=== PATIENT | female | born 1940 | race Caucasian/White ===

== ENCOUNTER 2018-01-15 11:00 | Outpatient (CLI) | payer MEDICARE ==
--- NOTE | 2018-01-15 14:28 | PET ---
PET CT OF THE BRAIN: Date: 01/15/18 HISTORY: 77-year-old female with left frontotemporal dementia. TECHNIQUE: PET CT was performed following the intravenous administration of 7.8 mCi [id number] in the right antecub ital fossa. FINDINGS: Fairly symmetric tracer localization is seen in the cerebral hemispheres on either side. No significa nt hypometabolic regions are seen. Uptake in the posterior cingulate gyrus is normal. IMPRESSION: Unremarkable exam. POS: JOSE JUAN
== END 2018-01-15 11:01 | disposition home or self-care (01) ==
LOC: PET 11:00
PROVIDERS: ATTEND Psychiatry & Neurology Neurology
DX: G31.09 Other frontotemporal neurocognitive disorder (principal)
CPT/HCPCS: 78608; A9552

== ENCOUNTER 2018-05-28 11:24 | Outpatient (CLI) | payer MEDICARE ==
--- NOTE | 2018-05-28 12:21 | RAD ---
CHEST 2 VIEWS: Date: 05/28/18 HISTORY: Cough. COMPARISON: 11/19/16. FINDINGS: Lungs are clear. No pneumothorax or effusion. Single lead defibrillator is in place. Scarring lung ap ices. No acute osseous abnormality. IMPRESSION: No acute intrathoracic abnormality. POS: OFF
--- NOTE | 2018-05-28 12:23 | RAD ---
SINUSES 3 VIEWS: Date: 05/28/18 HISTORY: Cough and low grade fever and sinus pain. COMPARISON: None. FINDINGS: There appears to be an air fluid level within both maxillary sinuses. Frontal sinuses appear well aer ated. Mastoids appear clear. IMPRESSION: Likely bimaxillary sinusitis. POS: OFF
== END 2018-05-28 11:25 | disposition home or self-care (01) ==
LOC: BICRAD 11:24
PROVIDERS: ATTEND Internal Medicine
DX: R05 Cough (principal); J18.9 Pneumonia, unspecified organism; J32.9 Chronic sinusitis, unspecified
CPT/HCPCS: 70220; 71046

== ENCOUNTER 2018-06-17 14:09 | Outpatient (CLI) | payer MEDICARE | END 2018-06-17 14:10 | disposition home or self-care (01) | LOC: CTENTCT 14:09 | PROVIDERS: ATTEND Specialist | DX: J32.9 Chronic sinusitis, unspecified (principal) | CPT/HCPCS: 70486 ==

== ENCOUNTER 2020-11-23 13:03 | Outpatient (CLI) | payer MEDICARE | END 2020-11-23 13:04 | disposition home or self-care (01) | LOC: BICRAD 13:03 | PROVIDERS: ATTEND Internal Medicine | DX: J32.9 Chronic sinusitis, unspecified (principal); R05 Cough | CPT/HCPCS: 70220; 71046 ==

== ENCOUNTER 2022-03-15 13:59 | Outpatient (CLI) | payer MEDICARE | END 2022-03-15 14:00 | disposition home or self-care (01) | LOC: CT 13:59 | PROVIDERS: ATTEND Internal Medicine | DX: G45.9 Transient cerebral ischemic attack, unspecified (principal); I63.9 Cerebral infarction, unspecified; I67.89 Other cerebrovascular disease | CPT/HCPCS: 70450; 93880 ==

== ENCOUNTER 2023-03-10 07:58 | Outpatient (CLI) | payer MEDICARE ==
[2023-03-10] MEDS ORDERED: Acetaminophen 500 MG TAB ONE (10:26)
[2023-03-10 10:35] LABS: Blood Culture - Extra Bottle RECEIVED; Blue RECEIVED; Gold RECEIVED; Green RECEIVED; Lavender RECEIVED; SST 8.5mL RECEIVED
[2023-03-10 11:34] LABS: CSF Source CSF; Clarity Clear (Clear); Tube # 4
== END 2023-03-10 11:30 | disposition home or self-care (01) ==
LOC: RAD 07:58
PROVIDERS: ATTEND Psychiatry & Neurology Neurology
DX: G93.89 Other specified disorders of brain (principal); G97.0 Cerebrospinal fluid leak from spinal puncture
CPT/HCPCS: 62270; 70450; 84157; 86592; 86612; 86635; 86698; 87529; 87899; 89051

== ENCOUNTER 2023-06-16 14:30 | Inpatient (IN) | payer MEDICARE ==
[2023-06-19] MEDS ORDERED: Bupivacaine 0.25% HCL 30 ML VIAL ONE ×2 (06:27→07:40)
[2023-06-19] MEDS ORDERED: EPINEPHrine 1 MG/ML VIAL ONE (06:27)
[2023-06-19] MEDS ORDERED: CEFAZOLIN 2 GM VIAL ONE (07:03)
[2023-06-19] MEDS ORDERED: Sodium Chloride 0.9% 100 ML ONE (07:04)
[2023-06-19] MEDS ORDERED: Fentanyl 250 MCG/5 ML VIAL ONE (07:16)
[2023-06-19] MEDS ORDERED: Lidocaine 1% PF 5 ML VIAL ONE ×2 (07:16→07:27)
[2023-06-19] MEDS ORDERED: PROPOFOL 20 ML ONE (07:16)
[2023-06-19] MEDS ORDERED: Rocuronium Bromide 10 MG/ML (10ML VIAL) ONE ×2 (07:16→07:27)
[2023-06-19] MEDS ORDERED: SUGAMMADEX SODIUM 200 MG/2 ML VIAL ONE (08:22)
[2023-06-19] MEDS ORDERED: hydrALAZINE 20 MG/ML VIAL SLOW IVP PRN (08:30)
[2023-06-19] MEDS ORDERED: Labetalol HCl 100 MG/20 ML VIAL SLOW IVP PRN (08:30)
[2023-06-19] MEDS ORDERED: Mag-Al 1200 mg/1200 mg/30 ML UDCUP PO PRN (08:30)
[2023-06-19] MEDS ORDERED: Morphine 2 MG/ML VIAL SLOW IVP PRN (08:30)
[2023-06-19] MEDS ORDERED: Promethazine HCl 12.5 MG in Sodium Chloride 0.9% 50 ML IVPB PRN (08:33)
[2023-06-19] MEDS ORDERED: fentaNYL 50 mcg/mL 1 mL Vial ONE (09:15)
[2023-06-19] MEDS: Acetaminophen 325 MG TAB PO PRN (11:54)
[2023-06-19] MEDS: Sodium Chloride 0.9% 1,000 ML IV SCH ×2 (11:55→18:36)
[2023-06-19] MEDS: Loratadine 10 MG TAB PO SCH (12:00)
[2023-06-19] MEDS: Sotalol HCl 80 MG TAB PO SCH ×2 (12:00→20:01)
[2023-06-19] MEDS: Hydrochlorothiazide 25 MG TAB PO SCH (12:00)
[2023-06-19] MEDS: Famotidine/PF 20 mg/2ml Vial SLOW IVP SCH ×2 (12:00→20:01)
[2023-06-19] MEDS: Valsartan 80 MG TAB PO SCH (12:01)
[2023-06-19] MEDS: HYDROcodone/Acetaminophen 10/325 mg Tablet PO PRN ×2 (13:46→19:30)
[2023-06-19] MEDS ORDERED: CEFAZOLIN 1 GM VIAL SLOW IVP SCH (14:00)
[2023-06-19 14:17] LABS: #Eosinphils 0.1 thou/uL (0.0-0.7); #Monocytes 0.8 thou/uL (0.11-0.59); %Basophils 0.2 % (0.0-1.0); %Eosinophils 0.7 % (0.0-10.0); %Lymphocytes 8.8 % (21.0-51.0); %Monocytes 7.5 % (0.0-10.0); %Neutrophils 82.4 % (42.0-75.0); Hematocrit 34.4 % (36.0-47.0); Hemoglobin 11.4 g/dL (12.0-16.0); Mean Corpuscular HGB CONC 33.1 g/dL (32.0-36.0); Mean Corpuscular Hemoglobin 29.2 pg (27.0-31.0); Mean Corpuscular Volume 88.2 fl (78.0-98.0); Mean Platelet Volume 10.4 fL (7.4-10.4); RBC Distribution Width 13.5 % (11.5-14.5)
[2023-06-19 14:18] LABS: Platelet Count 119 10x3/uL (130-400)
[2023-06-19 14:36] LABS: Anion Gap 10 mmol/L (10-20); BUN (Urea Nitrogen) 21 mg/dL (9.8-20.1); Calc. Creatinine Clearance 64 mL/min (70-130); Calcium 8.1 mg/dL (7.8-10.44); Carbon Dioxide 25 mmol/L (23-31); Chloride 105 mmol/L (98-107); Estimated GFR 78; Glucose 86 mg/dL (83-110); Potassium 4.3 mmol/L (3.5-5.1); Sodium 136 mmol/L (136-145)
[2023-06-19] MEDS: Ondansetron PF 4 MG/2 ML Vial IVP PRN ×2 (15:57→16:59)
[2023-06-19] MEDS: Carvedilol 6.25 MG TAB PO SCH (15:58)
[2023-06-19] MEDS: CEFAZOLIN 2 GM in Sodium Chloride 0.9% 100 ML IVPB SCH ×2 (15:58→23:15)
[2023-06-19] MEDS: diphenhydrAMINE 50 MG/ML VIAL IVP PRN (19:30)
[2023-06-20] MEDS: HYDROcodone/Acetaminophen 10/325 mg Tablet PO PRN ×3 (02:38→19:50)
[2023-06-20] MEDS: Carvedilol 6.25 MG TAB PO SCH ×2 (08:45→17:16)
[2023-06-20] MEDS: Spironolactone 25 MG TAB PO SCH (08:45)
[2023-06-20] MEDS: Hydrochlorothiazide 25 MG TAB PO SCH (09:10)
[2023-06-20] MEDS: Famotidine/PF 20 mg/2ml Vial SLOW IVP SCH ×2 (09:10→23:34)
[2023-06-20] MEDS: Loratadine 10 MG TAB PO SCH (09:10)
[2023-06-20] MEDS: Valsartan 80 MG TAB PO SCH (09:15)
[2023-06-20] MEDS: Sodium Chloride 0.9% 1,000 ML IV SCH (09:15)
[2023-06-20] MEDS: Sotalol HCl 80 MG TAB PO SCH ×2 (09:15→23:34)
[2023-06-20 16:18] VITALS: BMI 28.3
[2023-06-20] MEDS: Acetaminophen 325 MG TAB PO PRN (17:16)
[2023-06-21] MEDS ORDERED: Bisacodyl 5 MG TAB PO PRN (00:24)
[2023-06-21] MEDS ORDERED: Bisacodyl 5 MG TAB PO SCH (00:30)
[2023-06-21] MEDS: Sodium Chloride 0.9% 1,000 ML IV SCH (01:42)
[2023-06-21] MEDS: HYDROcodone/Acetaminophen 10/325 mg Tablet PO PRN (04:47)
[2023-06-21 08:37] VITALS: BP 126/71; TEMP 98.1
[2023-06-21] MEDS: Hydrochlorothiazide 25 MG TAB PO SCH (08:43)
[2023-06-21] MEDS: Valsartan 80 MG TAB PO SCH (08:43)
[2023-06-21] MEDS: Spironolactone 25 MG TAB PO SCH (08:44)
[2023-06-21] MEDS: Carvedilol 6.25 MG TAB PO SCH (08:44)
[2023-06-21] MEDS: Famotidine/PF 20 mg/2ml Vial SLOW IVP SCH (08:45)
[2023-06-21] MEDS: Sotalol HCl 80 MG TAB PO SCH (08:45)
[2023-06-21] MEDS: Loratadine 10 MG TAB PO SCH (08:45)
[2023-06-21] MEDS: diphenhydrAMINE 50 MG/ML VIAL IVP PRN (08:50)
== END 2023-06-21 11:25 | disposition home or self-care (01) | DRG 33 ==
LOC: SURG A 06-19 05:59 → CCU 06-19 11:25 → MSONC 06-20 12:32
PROVIDERS: ADMIT Neurological Surgery; ATTEND Hospitalist
PROC: 00160J6 Bypass Cerebral Ventricle to Peritoneal Cavity with Synthetic Substitute, Open Approach (ICD-10-PCS; principal; 2023-06-19)
DX: G91.2 (Idiopathic) normal pressure hydrocephalus (principal); I10 Essential (primary) hypertension; K21.9 Gastro-esophageal reflux disease without esophagitis; I25.10 Atherosclerotic heart disease of native coronary artery without angina pectoris; Z88.2 Allergy status to sulfonamides; Z88.8 Allergy status to other drugs, medicaments and biological substances; Z79.82 Long term (current) use of aspirin; Z90.89 Acquired absence of other organs; Z90.710 Acquired absence of both cervix and uterus; Z98.890 Other specified postprocedural states; Z12.31 Encounter for screening mammogram for malignant neoplasm of breast; Z91.89 Other specified personal risk factors, not elsewhere classified
CPT/HCPCS: 36415; 77063; 77067; 80048; 85025; C1713; C1776; J0171; J0360; J1200; J2272; J2405; J2704; J3010; J3490; J7050; S0020; S0028

== ENCOUNTER 2023-06-16 14:39 | Outpatient (CLI) | payer MEDICARE ==
[2023-06-16 16:19] LABS: #Eosinphils 0.1 10x3/uL (0.0-0.5); #Monocytes 0.7 10x3/uL (0.0-1.1); #Neutrophils 5.9 10x3/uL (1.5-8.4); %Basophils 0.4 % (0.0-2.0); %Eosinophils 1.5 % (0.0-6.0); %Lymphocytes 14.8 % (18.0-47.0); %Monocytes 8.7 % (0.0-10.0); %Neutrophils 74.1 % (40.0-75.0); Hematocrit 37.9 % (34.9-44.5); Hemoglobin 12.7 g/dL (12.0-15.5); Mean Corpuscular HGB CONC 33.5 g/dL (32.0-36.0); Mean Corpuscular Hemoglobin 28.3 pg (27.0-33.0); Mean Corpuscular Volume 84.4 fl (81.6-98.3); Mean Platelet Volume 10.1 fl (7.4-10.4); Platelet Count 138 10x3/uL (150-450); RBC Distribution Width 13.2 % (11.5-14.5); Red Blood Cell (RBC) Count 4.49 10x6/uL (3.90-5.03)
[2023-06-16 16:37] LABS: ALT (SGPT) 16 U/L (8-55); AST (SGOT) 17 U/L (5-34); Albumin 3.9 g/dL (3.4-4.8); Alkaline Phosphatase 60 U/L (40-110); Anion Gap 11 mmol/L (10-20); BUN (Urea Nitrogen) 16 mg/dL (9.8-20.1); Bilirubin, Total 1.1 mg/dL (0.2-1.2); Calc. Creatinine Clearance 0 mL/min (70-130); Calcium 8.7 mg/dL (7.8-10.44); Carbon Dioxide 25 mmol/L (23-31); Cardiac Risk 3.9 (Less than 4.5); Chloride 102 mmol/L (98-107); Cholesterol 205 mg/dl (< 200 Desired); Estimated GFR 82; Globulin 1.9 g/dL (2.4-3.5); Glucose 94 mg/dL (83-110); HDL Cholesterol 52 mg/dL (>60 Neg Risk); LDL Cholesterol, Calculated 132 mg/dL; Magnesium 2.1 mg/dL (1.6-2.6); Potassium 4.7 mmol/L (3.5-5.1); Protein, Total 5.8 g/dL (5.8-8.1); Sodium 133 mmol/L (136-145); Triglycerides 105 mg/dL (Less than 150)
[2023-06-16 21:30] LABS: T4 6.96 ug/dL (4.87-11.72)
== END 2023-06-16 14:40 | disposition home or self-care (01) ==
LOC: LABBT 14:39
PROVIDERS: ATTEND Neurological Surgery
DX: Z01.818 Encounter for other preprocedural examination (principal); G91.9 Hydrocephalus, unspecified
CPT/HCPCS: 80061; 83735; 84436; 84443; 93005; 93010

== ENCOUNTER 2023-06-30 16:42 | Emergency (ER) | payer MEDICARE ==
[~2023-06-30 16:42] MED LIST: Iopamidol-370 76% 500 ML MDV (1 ML CHARGE) ONE
[2023-06-30 17:39] LABS: #Eosinphils 0.2 thou/uL (0.0-0.7); #Monocytes 0.8 thou/uL (0.11-0.59); #Neutrophils 4.8 thou/uL (1.40-6.50); %Basophils 0.4 % (0.0-1.0); %Eosinophils 3.2 % (0.0-10.0); %Lymphocytes 14.3 % (21.0-51.0); %Monocytes 11.3 % (0.0-10.0); %Neutrophils 70.2 % (42.0-75.0); Hematocrit 37.8 % (36.0-47.0); Hemoglobin 12.9 g/dL (12.0-16.0); Mean Corpuscular HGB CONC 34.1 g/dL (32.0-36.0); Mean Corpuscular Volume 84.9 fl (78.0-98.0); Mean Platelet Volume 9.8 fL (7.4-10.4); Platelet Count 248 10x3/uL (130-400); RBC Distribution Width 13.2 % (11.5-14.5); Red Blood Cell (RBC) Count 4.45 mill/uL (4.20-5.40); White Blood Cell (WBC) Count 6.8 10x3/uL (4.8-10.8)
[2023-06-30 18:01] LABS: ALT (SGPT) 9 U/L (8-55); AST (SGOT) 14 U/L (5-34); Albumin 4.1 g/dL (3.4-4.8); Alkaline Phosphatase 62 U/L (40-110); Anion Gap 15 mmol/L (10-20); BUN (Urea Nitrogen) 10 mg/dL (9.8-20.1); Bilirubin, Total 0.9 mg/dL (0.2-1.2); Calc. Creatinine Clearance 0 mL/min (70-130); Calcium 9.3 mg/dL (7.8-10.44); Carbon Dioxide 23 mmol/L (23-31); Chloride 96 mmol/L (98-107); Estimated GFR 70; Glucose 85 mg/dL (83-110); Potassium 4.7 mmol/L (3.5-5.1); Protein, Total 6.1 g/dL (5.8-8.1); Sodium 129 mmol/L (136-145)
== END 2023-06-30 20:10 | disposition home or self-care (01) ==
LOC: ERS 16:42
DX: R51.9 Headache, unspecified (principal); K76.89 Other specified diseases of liver; K86.89 Other specified diseases of pancreas; I10 Essential (primary) hypertension; Z98.2 Presence of cerebrospinal fluid drainage device; Z79.899 Other long term (current) drug therapy
CPT/HCPCS: 36415; 70450; 74177; 75809; 80053; 83605; 85025; 86140; Q9967